=== PATIENT | male | born 1985 | race Caucasian/White ===

== ENCOUNTER 2017-01-16 11:23 | Emergency (ER) | payer OTHER, BC ==
[2017-01-16] MEDS ORDERED: HYDROmorphone 2 MG/ML Syringe IM ONE (11:32)
[2017-01-16] MEDS ORDERED: Ketorolac 60 MG/2 ML SDV IM ONE (11:34)
[2017-01-16] MEDS ORDERED: Ondansetron 4 MG Tab.DIS PO ONE (11:34)
--- NOTE | 2017-01-16 11:38 | EDM.PDOC ---
ED HPI GENERAL MEDICAL PROBLEM - General Chief Complaint: Back Pain or Injury Stated Complaint: BACK PAIN Time Seen by Provider: 01/16/17 11:25 - History of Present Illness INITIAL COMMENTS - FREE TEXT/NARRATIVE: HISTORY AND PHYSICAL: History of present illness: Patient is a 31-year-old male history of chronic back and neck pain for which he has multilevel disc disease who comes in with acute exacerbation of chronic pain in form of pain and spasm he states he was changing a tire and may have tweaked his back yesterday it got progressively worse unresponsive to muscle relaxants at home he denies numbness weakness incontinence or retention polyp Review of systems: As per history of present illness and below otherwise all systems reviewed and negative. Past medical history: As per history of present illness and as reviewed below otherwise noncontributory. Surgical history: As per history of present illness and as reviewed below otherwise noncontributory. Social history: No reported history of drug or alcohol abuse. Family history: As per history of present illness and as reviewed below otherwise noncontributory. Physical exam: HEENT: Atraumatic, normocephalic, pupils reactive, negative for conjunctival pallor or scleral icterus, mucous membranes moist, throat clear, neck supple, nontender, trachea midline. Lungs: Clear to auscultation, breath sounds equal bilaterally, chest nontender. Heart: S1S2, regular, negative for clicks, rubs, or JVD. Abdomen: Soft, nondistended, nontender. Negative for masses or hepatosplenomegaly. Negative for costovertebral tenderness. Pelvis: Stable nontender. Genitourinary: Deferred. Rectal: Deferred. Extremities: Atraumatic, negative for cords or calf pain. Neurovascular unremarkable. Neuro: Awake, alert, oriented. Cranial nerves II through XII unremarkable. Cerebellum unremarkable. Motor and sensory unremarkable throughout. Exam nonfocal. Back: Patient has tenderness and spasm paravertebral region at the level lumbar spine the vertebral body or point tenderness he is able stand on his toes back on his heels motor and sensory are unremarkable as are deep degenerative Diagnostics: None Therapeutics: Dilaudid 1 mg IM Zofran 4 mg by mouth Toradol 60 mg IM Impression: #1 chronic intermittent back pain with acute exacerbation Definitive disposition and diagnosis as appropriate pending reevaluation and review of above. ED ROS GENERAL - Review of Systems Review Of Systems: ROS reveals no pertinent complaints other than HPI. ED EXAM, GENERAL - Physical Exam Exam: See Below (See dictation) Course - Orders/Labs/Meds Meds: Medications Discontinued Medications Generic Name Dose Route Start Last Admin Trade Name Shahrzad PRN Reason Stop Dose Admin Hydromorphone HCl 1 mg 01/16/17 11:32 Dilaudid IM 01/16/17 11:33 ONETIME ONE Ketorolac Tromethamine 60 mg 01/16/17 11:34 Toradol IM 01/16/17 11:35 ONETIME ONE Ondansetron HCl 4 mg 01/16/17 11:34 Zofran Odt PO 01/16/17 11:35 ONETIME ONE Departure - Departure Time of Disposition: 11:37 Disposition: Home, Self-Care 01 Condition: good Clinical Impression: Back pain - Discharge Information Forms: ED Department Discharge Additional Instructions: The following information is given to patients seen in the emergency department who are being discharged to home. This information is to outline your options for follow-up care. We provide all patients seen in our emergency department with a follow-up referral. The need for follow-up, as well as the timing and circumstances, are variable depending upon the specifics of your emergency department visit. If you don't have a primary care physician on staff, we will provide you with a referral. We always advise you to contact your personal physician following an emergency department visit to inform them of the circumstance of the visit and for follow-up with them and/or the need for any referrals to a consulting specialist. The emergency department will also refer you to a specialist when appropriate. This referral assures that you have the opportunity for followup care with a specialist. All of these measure are taken in an effort to provide you with optimal care, which includes your followup. Under all circumstances we always encourage you to contact your private physician who remains a resource for coordinating your care. When calling for followup care, please make the office aware that this follow-up is from your recent emergency room visit. If for any reason you are refused follow-up, please contact the [facility] emergency department at and asked to speak to the emergency department charge nurse. Hydrocodone [place] Naprosyn as prescribed continue all medications as prescribed follow up primary medical doctor one to 2 days return as needed as discussed
[2017-01-16 12:04] VITALS: BP 132/70
== END 2017-01-16 12:02 | disposition home or self-care (01) ==
LOC: MW.ED 11:23
DX: M54.9 Dorsalgia, unspecified (principal); G89.29 Other chronic pain
CPT/HCPCS: 96372; 99283; A9270; J1170; J1885